=== PATIENT | male | born 1955 | race Caucasian/White ===

== ENCOUNTER 2020-01-24 15:17 | Outpatient (REF) | payer OTHER, SELFPAY ==
[2020-01-24 17:17] LABS: Anion Gap 14 (12-20); Blood Urea Nitrogen 22 mg/dL (9-16); Calcium 9.7 mg/dL (8.4-10.2); Carbon Dioxide 27 mmol/L (22-29); Chloride 103 mmol/L (96-108); Cholesterol 152 mg/dL; Estimated Glomerular Filt Rate > 60; Glucose Random 126 mg/dL (60-115); HDL Cholesterol 65 mg/dL; LDL Cholesterol Calculated 75 mg/dl; Lipase 25 U/L (8-78); Potassium 4.9 mmol/l (3.3-5.1); Sodium 139 mmol/L (135-145); Triglycerides 64 mg/dL
[2020-01-24 17:36] LABS: Prostate Specific Antigen Scr 2.89 ng/mL (<0.05-4.0)
[2020-01-24 17:51] LABS: Creatinine Urine 200.05 mg/dL; Microalbum/Creatinine Ratio Ur 121.4 ug/mg cr
== END 2020-01-24 15:18 | disposition home or self-care (01) ==
LOC: HO.HMGCLDS 15:17
PROVIDERS: PCP Nurse Practitioner Family; Visit Provider Nurse Practitioner Family
DX: E11.9 Type 2 diabetes mellitus without complications (principal); E78.5 Hyperlipidemia, unspecified; Z12.5 Encounter for screening for malignant neoplasm of prostate
CPT/HCPCS: 80048; 80061; 82043; 83690; 84153

== ENCOUNTER → 2020-11-02 09:05 | Outpatient (BNVA) | payer OTHER, SELFPAY | PROVIDERS: PCP Nurse Practitioner Family; Referring Provider Nurse Practitioner Family; Visit Provider Internal Medicine Cardiovascular Disease | DX: I48.20 Chronic atrial fibrillation, unspecified (principal) | CPT/HCPCS: 93005 ==

== ENCOUNTER → 2021-12-06 14:28 | Outpatient (BNVA) | payer OTHER, SELFPAY | PROVIDERS: PCP Nurse Practitioner Family; Referring Provider Nurse Practitioner Family; Visit Provider Nurse Practitioner Family | DX: I48.20 Chronic atrial fibrillation, unspecified (principal); E78.5 Hyperlipidemia, unspecified | CPT/HCPCS: 93005 ==

== ENCOUNTER → 2022-01-01 11:17 | Outpatient (REF) | payer OTHER, SELFPAY ==
--- NOTE | 2022-01-08 14:19 | HM_ITS ---
* Total monitoring time 2 days and 16 hours. * Underlying rhythm is atrial fibrillation. * Average rate 88/Min. Range 58 to 195/Min. * About 7.7% of the time, rate greater than 100/Min. No significant bradycardia or pauses. * No patient diary. * Overall, less than optimal rate control with tendency for very rapid rates. MTDD
== END ==
LOC: HO.CARD 11:17
PROVIDERS: PCP Nurse Practitioner Family; Visit Provider Nurse Practitioner Family
DX: I48.20 Chronic atrial fibrillation, unspecified (principal)
CPT/HCPCS: 93242

== ENCOUNTER → 2022-01-22 14:52 | Outpatient (REF) | payer OTHER, SELFPAY ==
--- NOTE | 2022-01-22 14:57 | CA_ITS ---
Transthoracic Echocardiogram Patient (Last, First, Middle): Kevin Fleming, Gender: Male Date of : 1955 Age: 66 Procedure Date: 01/22/2022 Procedure Type: Transthoracic Echocardiogram Location: OP Height: 172.72 cm Weight: 77.57 kg BSA: 1.91 m2 Heart Rate: bpm BP: 114 / 70 mmHg Grass Farmer: LISY Referring MD: Abiola Spence [facility] Symptoms: I48.20 - Chronic atrial fibrillation, unspecified Study Quality: Adequate w contrast ECG Rhythm: Atrial Fibrillation Conclusions: - The left ventricular systolic function is normal. The visually estimated ejection fraction is between 60-65%. - No obvious valvular pathology seen on this study. Findings Procedure Information Contrast agent, definity, is being given per protocol without apparent complications. Left Ventricle Normal left ventricular cavity size. The left ventricular systolic function is normal. The visually estimated ejection fraction is between 60-65%. There is no evidence of regional wall motion abnormalities. Diastolic function is indeterminate on the basis of available data. There is mild septal asymmetric hypertrophy. Right Ventricle Mildly increased right ventricular cavity size. There is normal right ventricular systolic function. Atria Both atria are normal in size. Aortic Valve There is a normal trileaflet aortic valve. There is no aortic valve stenosis. There is no aortic valve regurgitation. Mitral Valve The mitral valve appears normal. There is trace mitral valve regurgitation. There is no mitral valve stenosis. Pulmonic Valve The pulmonic valve is likely normal. Tricuspid Valve Normal tricuspid valve structure. There is trace tricuspid valve regurgitation. There is no evidence of pulmonary hypertension. Great Vessels The asc aorta is normal in size. Venous The inferior vena cava is normal in size and collapses greater than 50% with inspiration. Pericardium/Pleural There is no evidence of pericardial effusion. Prior Study Comparison No prior study available for comparison. Recommendations, Care & Conclusions No obvious valvular pathology seen on this study. Measurements 2D Linear Measurements IVSd: 1.13 0.6-0.9/0.6-1.0 cm LVIDd: 3.74 3.9-5.3/4.2-5.9 cm LVIDd Index: 1.96 2.4-3.2/2.2-3.1 cm/m2 LVIDs: 2.42 2.0-3.6 cm LVPWd: 0.94 0.7-1.1 cm LA Diam: 3.70 2.7-3.8/3.0-4.0 cm LAIDs Index: 1.94 1.5-2.3 cm/m2 LV Mass: 149.04 67-162/88-224 g LV Mass Index: 78.03 43-95/49-115 g/m2 LVOT Diam: 2.40 3.0+(-)1.3 cm 2D Systolic Function EF 4C: 70.40 >55% EF 2C: 64.30 >55% EF BiP: 68.30 >55% Mitral Valve MV Pk E: 0.87 Aortic Valve AoV Pk Jeyson: 0.95 AoV Pk Grad: 4.00 PILAR: 4.69 LVOT LVOT Pk Jeyson: 0.93 LVOT Mn Jeyson: 0.63 LVOT VTI: 0.15 LVOT Pk Grad: 3.00 LVOT Mn Grad: 2.00 LVOT Diam: 2.40 LVOT Area: 4.52 Diastolic Function MV Pk E: 0.87 Right Ventricle TAPSE (mm): 18.30 TVS' Jeyson: 9.30 Tricuspid Valve TR Pk Jeyson: 2.16 TR Pk Grad: 19.00 RA Press: 3.00 RVSP: 22.00 Great Vessels Aorta Sinus of Valsalva: 3.40 2.0-3.5 cm Ao Asc: 3.60 2.1-3.4 cm Pulmonary Valve PV Pk Jeyson: 0.94 Peak PV Grad: 4.00 Updated in Other Vendor System with Status of Final Osorio Kaminski MD electronically signed on 01/22/2022 4:15:21 PM with status of Final
== END ==
LOC: HO.CARD 14:52
PROVIDERS: Visit Provider Nurse Practitioner Family
DX: I48.20 Chronic atrial fibrillation, unspecified (principal)
CPT/HCPCS: 93306; Q9957

== ENCOUNTER 2022-01-24 07:01 | Outpatient (REF) | payer OTHER, SELFPAY ==
[2022-01-24 11:29] LABS: MANUAL DIFF FLAG NO
[2022-01-24 11:47] LABS: Basophils Percent Auto 0.5 % (0-2); Eosinophils Absolute Auto 0.1 X10*3/uL (0.0-0.4); Eosinophils Percent Auto 1.2 % (0-4); Hematocrit 52.4 % (42.0-52.0); Hemoglobin 17.2 g/dl (14.0-18.0); Imm Gran Abs Auto 0.01 X10*3/uL (0.00-0.03); Imm Gran Pct Auto 0.2 % (0.0-0.4); Lymphocytes Percent Auto 30.3 % (20-40); Mean Corpuscular HGB Conc 32.8 g/dl (31.0-36.0); Mean Corpuscular Hemoglobin 29.6 pg (27.0-33.0); Mean Platelet Volume 10.6 fL (9.4-12.4); Monocytes Absolute Auto 0.7 X10*3/uL (0.1-1.2); Monocytes Percent Auto 10.3 % (2-11); Neutrophils Absolute Auto 3.7 x10*3/uL (2.0-8.3); Neutrophils Percent Auto 57.5 % (45-73); Platelet Count 226 X10*3/uL (160-400); Red Blood Count 5.82 X10*6/uL (4.60-5.80); Red Cell Distribution Width 12.6 % (11.0-16.0); White Blood Count 6.5 X10*3/uL (4.8-10.8)
[2022-01-24 11:55] LABS: Estimated Average Glucose 177 mg/dL; Hemoglobin A1c % 7.8 %
[2022-01-24 12:18] LABS: Alanine Aminotransferase 26 U/L (0-40); Albumin Level 4.5 g/dL (3.5-5.0); Alkaline Phosphatase 72 U/L (39-117); Anion Gap 19 (12-20); Aspartate Amino Transferase 22 U/L (5-37); Bilirubin Total 2.3 mg/dL (0.0-1.0); Blood Urea Nitrogen 16 mg/dL (9-16); Calcium 10.2 mg/dL (8.4-10.2); Carbon Dioxide 25 mmol/L (22-29); Chloride 101 mmol/L (96-108); Cholesterol 118 mg/dL; Estimated Glomerular Filt Rate > 60; Glucose Fasting 107 mg/dL (60-99); HDL Cholesterol 58 mg/dL; LDL Cholesterol Calculated 46 mg/dl; Potassium 4.5 mmol/L (3.3-5.1); Sodium 140 mmol/L (135-145); Total Protein 7.2 g/dL (6.5-8.0); Triglycerides 73 mg/dL
[2022-01-24 12:21] LABS: Creatinine Urine 242.85 mg/dL; Microalbum/Creatinine Ratio Ur 30.4 ug/mg cr
[2022-01-24 12:41] LABS: Prostate Specific Antigen Scr 2.75 ng/mL (<0.05-4.0); TSH reflex Free T4 1.63 uIU/mL (0.32-4.0)
[2022-01-24 13:12] LABS: Appearance Urine Turbid; Color Urine Yellow; Glucose Urine UA Negative (Negative); Leukocyte Esterase Urine Negative (Negative); Nitrite Urine Negative (Negative); Specific Gravity - Urine 1.025 (1.005-1.025); Urine Blood Negative (Negative); Urine Ketones Negative (Negative); Urine Protein Trace mg/dL (Neg-Trace)
== END 2022-01-24 07:02 | disposition home or self-care (01) ==
LOC: HO.HMGCLDS 07:01
PROVIDERS: PCP Nurse Practitioner Family; Visit Provider Nurse Practitioner Family
DX: E11.9 Type 2 diabetes mellitus without complications (principal); Z12.5 Encounter for screening for malignant neoplasm of prostate
CPT/HCPCS: 36415; 80053; 80061; 81003; 82043; 83036; 84153; 84443; 85025

== ENCOUNTER 2022-12-12 15:17 | Outpatient (AMB) | payer OTHER, SELFPAY ==
--- NOTE | 2022-12-12 15:42 | A.OFFVIS_ITS ---
Intake Vital Signs 12/12/22 15:43 Height 5 ft 8 in Weight 171 lb 1.259 oz BMI 26.0 BP 120/82 Blood Pressure Location Lt brachial Position Sitting Pulse 103 H Intake Visit Reasons: 1 year follow up Intake Note: 1 year f/u Photo Equipment Technician Required: No Allergies No Known Allergies Allergy (Verified 12/12/22 15:51) HPI 1 year follow up HPI Details Kevin is a 67-year-old male with past medical history of hyperlipidemia, diabetes, CVA, atrial fibrillation who presents for follow-up. Today he reports he has been feeling well with no concerning symptoms. He denies any heart palpitations and cannot feel the fact that he is in atrial fi brillation. No chest discomfort at rest or with activity. No shortness of breath, dizziness, presyncope, syncope, PND, orthopnea or edema. He reports very good activity tolerance and continues to golf 18 holes without a cart, caring his golf bag. Takes all meds as directed. No bleeding issues reported. [facility] Medical History Chronic a-fib Dyslipidemia Diabetes History of CVA (cerebrovascular accident) Pilonidal cyst Family History Father HTN (hypertension) Mother No problems noted. Social History Housing: House Alcohol intake: current Alcohol intake frequency: holidays/special occasions only Patient Tobacco Use Status: Never used Tobacco e-Cigarette/Vaping Use: Never Used Current occupational status: employed Cognitive needs: No Hearing needs: No Vision needs: No Review of Systems Const All systems reviewed & are unremarkable except as noted in HPI and below ENT Denies dizziness Card Denies chest pain, Denies chest pain at rest, Denies chest pain with activity, Denies rapid heart rate, Denies pedal edema, Denies edema, Denies leg edema, Denies lightheadedness, Denies palpitations, Denies dyspnea, Denies dyspnea on exertion and Denies orthopnea Resp Denies cough, Denies dyspnea and Denies dyspnea on exertion GI Denies hematochezia and Denies change in stool character Musc Denies abnormal gait, Denies limited range of motion, Denies muscle cramps, Denies muscle weakness, Denies numbness, Denies radiating pain into limb, Denies stiffness and Denies tingling Neuro Denies abnormal gait, Denies dizziness, Denies numbness and Denies tingling Endo Denies palpitations Physical Exam Vital Signs: Last Vital Signs Pulse 103 H 12/12/22 15:43 BP 120/82 12/12/22 15:43 BMI result Body Mass Index 26.0 Const General: cooperative, healthy appearing, comfortable and no acute distress Orientation/consciousness: patient oriented x3 Neck Neck: Yes normal visual inspection Resp Effort & Inspection: normal respiratory effort Auscultation: clear to auscultation bilaterally, no crackles, no rales, no rhonchi and no wheezes Cardio Jugular venous distension: no JVD Rate: tachycardic Rhythm: abnormal rhythm Heart sounds: S1 normal heart sound present, S2 normal heart sound present, no murmurs and no rubs Neuro General: patient oriented x3 Extrem General: Yes normal to inspection Psych Appearance: grossly normal Mental Status: mental status grossly normal Speech and movement: Normal speech and movement present Office Procedures EKG Details: Today, read by me, atrial fibrillation with rapid ventricular response, rate 103, QTC 434 milliseconds [id number], Complete Assessment & Plan Assessment & Plan (1) Chronic a-fib: Code(s): I48.20 - Chronic atrial fibrillation, unspecified Plan: History of chronic atrial fibrillation with prior failed cardioversion in the past. He he has not been on rate slowing agents due to controlled heart rates in the past. He denies any heart palpitations. Holter monitor done on 01/08/2022 showed atrial fibrillation with average heart rate 88 with elevated heart rates at times up to peak of 195. An echocardiogram was done 01/22/2022 showing EF 60-65%. Today he reports he continues to feel very well with no concerning symptoms. EKG shows atrial fibrillation, rate 103. Discussed need for rate slowing agent at this time. Will start on metoprolol XL 25 mg daily. He declines repeat Holter monitor as his last 1 cost him 600 dollars. Will arrange for an office EKG in a few weeks to reassess rate. He is on Eliquis for anticoagulation. No bleeding issues reported. Labs done 01/24/2022 showed creatinine 0.87, hematocrit 52.4. Recommend bi annual kidney function. Cardiology follow-up in 1 year, sooner if needed. (2) Dyslipidemia: Code(s): E78.5 - Hyperlipidemia, unspecified Plan: [place] LDL goal less than 70 and patient with diabetes. Last LDL 46 on 01/24/22. Continue atorvastatin Medications: New metoprolol succinate ER 25 mg PO DAILY 30 tabs 5RF Coding Level of Care Code Est Pt Level 3 (19399) Diagnoses Chronic a-fib I48.20 Dyslipidemia E78.5 CPT Codes EKG - CPT: 24452-[id number], Complete ([id number]) Time Spent (min) 24 Comment Chart review, documentation, interview, assessment
[2022-12-12 15:43] VITALS: BP 120/82; PULSE 103; BMI 26.0
== END 2022-12-12 16:23 | disposition home or self-care (01) ==
PROVIDERS: PCP Nurse Practitioner Family; Referring Provider Nurse Practitioner Family; Visit Provider Nurse Practitioner Family
DX: I48.20 Chronic atrial fibrillation, unspecified (principal); E78.5 Hyperlipidemia, unspecified
CPT/HCPCS: 93010; 99213

== ENCOUNTER → 2022-12-12 15:17 | Outpatient (BNVA) | payer OTHER, SELFPAY | PROVIDERS: PCP Nurse Practitioner Family; Referring Provider Nurse Practitioner Family; Visit Provider Nurse Practitioner Family | DX: I48.20 Chronic atrial fibrillation, unspecified (principal); E78.5 Hyperlipidemia, unspecified; Z79.01 Long term (current) use of anticoagulants; Z79.899 Other long term (current) drug therapy | CPT/HCPCS: 93005 ==

== ENCOUNTER → 2023-01-09 15:21 | Outpatient (BNVA) | payer OTHER, SELFPAY | PROVIDERS: PCP Nurse Practitioner Family; Visit Provider Nurse Practitioner Family ==

== ENCOUNTER 2023-02-01 08:24 | Outpatient (REF) | payer OTHER, SELFPAY ==
[2023-02-01 11:12] LABS: MANUAL DIFF FLAG NO
[2023-02-01 11:18] LABS: Basophils Absolute Auto 0.1 X10*3/uL (0.0-0.2); Basophils Percent Auto 0.8 % (0-2); Eosinophils Absolute Auto 0.2 X10*3/uL (0.0-0.4); Eosinophils Percent Auto 3.3 % (0-4); Hematocrit 48.4 % (42.0-52.0); Hemoglobin 16.3 g/dl (14.0-18.0); Imm Gran Abs Auto 0.02 X10*3/uL (0.00-0.03); Imm Gran Pct Auto 0.3 % (0.0-0.4); Lymphocytes Absolute Auto 1.6 X10*3/uL (1.2-4.9); Lymphocytes Percent Auto 25.2 % (20-40); Mean Corpuscular HGB Conc 33.7 g/dl (31.0-36.0); Mean Corpuscular Hemoglobin 30.5 pg (27.0-33.0); Mean Corpuscular Volume 90.5 fL (80.0-98.0); Mean Platelet Volume 10.2 fL (9.4-12.4); Monocytes Absolute Auto 0.7 X10*3/uL (0.1-1.2); Monocytes Percent Auto 10.4 % (2-11); Neutrophils Absolute Auto 3.8 x10*3/uL (2.0-8.3); Platelet Count 223 X10*3/uL (160-400); Red Blood Count 5.35 X10*6/uL (4.60-5.80); Red Cell Distribution Width 12.5 % (11.0-16.0); White Blood Count 6.4 X10*3/uL (4.8-10.8)
[2023-02-01 11:24] LABS: Appearance Urine Clear; Color Urine Yellow; Glucose Urine UA Negative (Negative); Leukocyte Esterase Urine Negative (Negative); Nitrite Urine Negative (Negative); Specific Gravity - Urine 1.025 (1.005-1.025); Urine Blood Negative (Negative); Urine Ketones Trace mg/dL (Negative); Urine Protein Negative (Neg-Trace)
[2023-02-01 11:39] LABS: Alanine Aminotransferase 30 U/L (0-40); Albumin Level 4.2 g/dL (3.5-5.0); Alkaline Phosphatase 59 U/L (39-117); Anion Gap 14 (12-20); Aspartate Amino Transferase 26 U/L (5-37); Bilirubin Total 2.1 mg/dL (0.0-1.0); Blood Urea Nitrogen 17 mg/dL (9-16); Calcium 9.9 mg/dL (8.4-10.2); Carbon Dioxide 26 mmol/L (22-29); Chloride 103 mmol/L (96-108); Cholesterol 94 mg/dL (<200); Estimated Glomerular Filt Rate > 60; Glucose Fasting 105 mg/dL (60-99); HDL Cholesterol 44 mg/dL (>40); LDL Cholesterol Calculated 36 mg/dL (<100); Potassium 4.4 mmol/L (3.3-5.1); Sodium 139 mmol/L (135-145); Total Protein 6.8 g/dL (6.5-8.0); Triglycerides 73 mg/dL (<150)
[2023-02-01 11:42] LABS: Estimated Average Glucose 174 mg/dL; Hemoglobin A1c % 7.7 % (<6.0)
[2023-02-01 11:54] LABS: TSH reflex Free T4 0.89 uIU/mL (0.32-4.0)
== END 2023-02-01 08:25 | disposition home or self-care (01) ==
LOC: HO.HMGCLDS 08:24
PROVIDERS: PCP Nurse Practitioner Family; Visit Provider Nurse Practitioner Family
DX: E11.9 Type 2 diabetes mellitus without complications (principal)
CPT/HCPCS: 36415; 80053; 80061; 81003; 83036; 84443; 85025

== ENCOUNTER 2023-02-12 07:55 | Outpatient (AMB) | payer OTHER, SELFPAY ==
--- NOTE | 2023-02-12 07:56 | A.OFFPC_ITS ---
Vital Signs 02/12/23 07:59 Weight 171 lb BP 118/82 Blood Pressure Location Lt brachial Position Sitting Pulse 66 Pulse Source Pulse Oximeter Pulse Oximetry (%) 96 Oxygen Delivery Method Room Air Intake Visit Reasons: PE Allergies No Known Allergies Allergy (Verified 02/12/23 08:00) Medication List - Last Reconciled 02/12/23 by KAILEE Ortiz apixaban 5 mg PO BID 90 days atorvastatin 80 mg PO DAILY 90 days blood sugar diagnostic ([employer]Touch Verio test strips) 3 times daily empagliflozin (Jardiance) 10 mg PO DAILY metformin ER 1,000 mg (2 x 500 mg) PO BID metoprolol succinate ER 25 mg PO DAILY semaglutide 2 mg (0.75 mL) subcut QWEEK Tobacco use date assessed: 08/14/22 Fall risk assessment: No Falls in past year Last assessed Fall Risk: 02/12/23 Dental Screening Dental Screen Date: 02/12/23 Did you have a dental visit in the last 12 months?: Yes Did you have a dental problem in the last 6 months where you did not have access to dental care?: No Was dental information given to patient?: Patient has dentist HPI PE HPI Details Pt is here for a PE. Labs were already performed. Due for colon screen. Due for PSA, will order. Denies dribbling with urination, weak stream, and frequent nocturia. Pt is a diabetic, on a statin. Last A1C was 7.7. Due for microalbumin, will order. Denies polyuria, polydipsia, and neuropathy. Pt denies any signs and symptoms of hypoglycemia and does know how to correct it. Pt reports that his blood sugar has been ranging from 140-200. Will increase ozempic from 1mg to 2mg. Will also add jardiance 10mg. Eye exam is up to date. instructed on getting psv 23 at his pharmacy [facility] Medical History Chronic a-fib Dyslipidemia Diabetes History of CVA (cerebrovascular accident) Pilonidal cyst Family History Father HTN (hypertension) Mother No problems noted. Social History Housing: House Alcohol intake: current Alcohol intake frequency: holidays/special occasions only Patient Tobacco Use Status: Never used Tobacco e-Cigarette/Vaping Use: Never Used Current occupational status: employed Cognitive needs: No Hearing needs: No Vision needs: No Questionnaire Thrive Questionnaire Date Thrive assessed: 08/14/22 AUDIT C Alcohol Use Questionnaire (AUDIT-C) 1. How often do you have a drink containing alcohol?: 2-4 times a month 2. How many drinks containing alcohol do you have on a typical day when you are drinking?: 1 or 2 3. How often do you have six or more drinks on one occasion?: Never Total Score: 2 Score Reviewed/Action Taken: No SAGRARIO-7 AMB Questionnaire SAGRARIO-7 Date SAGRARIO - 7 assessed: 08/14/22 Source: Developed by Drs. Dennis Ryan, Keri Vasquez, Len Roche and colleagues, with an educational jonnathan from [email or web address]. Review of Systems Const Denies chills and Denies fever(s) Eyes Denies blurry vision ENT Denies vertigo, Denies dizziness and Denies sore throat Card Denies chest pain at rest, Denies chest pain with activity, Denies diaphoresis, Denies dyspnea and Denies dyspnea on exertion Resp Denies cough, Denies dyspnea, Denies dyspnea on exertion and Denies wheezing GI Denies abdominal pain, Denies melena, Denies hematochezia, Denies constipation, Denies diarrhea and Denies loose stools Denies hematuria Musc Denies numbness and Denies tingling Skin/Breast Denies lesions Neuro Denies vertigo, Denies dizziness, Denies numbness and Denies tingling Psych Denies anxiety, Denies depression, Denies homicidal ideation, Denies suicidal ideation and Denies other (substance abuse) Aller/Immun Denies wheezing Physical exam (Primary Care) Vital Signs: Last Vital Signs Pulse 66 02/12/23 07:59 BP 118/82 02/12/23 07:59 Pulse Ox 96 02/12/23 07:59 Oxygen Delivery Method Room Air 02/12/23 07:59 Tobacco/Smoking Status: Tobacco use Status Tobacco use date assessed 08/14/22 02/12/23 07:59 Patient Tobacco Use Status Never used Tobacco 02/12/23 07:59 e-Cigarette/Vaping Use Never Used 02/12/23 07:59 Thrive Assessment: Date of Thrive Assessment Date Thrive assessed 08/14/22 02/12/23 07:59 Const General: cooperative Nutritional Appearance: well nourished Orientation/consciousness: patient oriented x3 HENMT Head: Yes normal to inspection, Yes normocephalic and Yes atraumatic Ears: TM's normal bilaterally Eyes General: appearance normal, both eyes and all related structures Alignment and Position: alignment normal and position normal Neck Neck: Yes normal visual inspection and Yes no lymphadenopathy Thyroid: Thyroid normal Resp Effort & Inspection: normal respiratory effort Auscultation: clear to auscultation bilaterally Cardio Rate: regular rate Rhythm: regular rhythm Heart sounds: S1 normal heart sound present, S2 normal heart sound present and no murmurs GI Palpation (GI): Soft to palpation and nontender Auscultation: normal bowel sounds Male General Exam: Yes normal external exam Penis: normal penis Scrotum: scrotum normal, testes descended bilaterally and no inguinal hernias Testes: no testicular mass Skin Rashes: no rashes Neuro General: patient oriented x3, moves all extremities, no focal motor deficits and deep tendon reflexes 2+ bilaterally Romberg Test: Negative Extrem Other: bilat feet: + sensation with use of monofilament, feet intact without lesions Psych Appearance: grossly normal Mental Status: mental status grossly normal Speech and movement: Normal speech and movement present Affect: normal affect Attitude: cooperative Thought process: Normal thought process present Thought content: Normal thought content present Insight: Good insight present (Psych) Judgement: Good judgement present (Psych) Assessment and Plan Assessment & Plan (1) Screening PSA (prostate specific antigen): Code(s): Z12.5 - Encounter for screening for malignant neoplasm of prostate Plan: PSA ordered (2) Diabetes: Code(s): E11.9 - Type 2 diabetes mellitus without complications (3) Screening for colon cancer: Code(s): Z12.11 - Encounter for screening for malignant neoplasm of colon Plan The patient agreed to the use of a medical transcriptionist for this encounter. Scribed for KAILEE Polo by Jayde Perea medical transcriptionist, on 02/12/2023 at 08:05 EST. Orders: Orders Microalbumin, Random (w Creat) Today E11.9 - Type 2 diabetes mellitus without complications Prostate Specific Antigen Scr Today Z12.5 - Encounter for screening for malignant neoplasm of prostate Referrals Gastroenterology Referral Z12.11 - Encounter for screening for malignant neoplasm of colon Medications: New empagliflozin (Jardiance) 10 mg PO DAILY 90 tabs 0RF Changed From semaglutide (Ozempic) 1 mg (0.75 mL) subcut QWEEK 9 mL 1RF To semaglutide 2 mg (0.75 mL) subcut QWEEK 3 mL 1RF Coding Level of Care Code Est Pt Prev Care >65y(95432) Diagnoses Screening PSA (prostate specific antigen) Z12.5 Diabetes E11.9 Screening for colon cancer Z12.11
[2023-02-12 07:59] VITALS: BP 118/82; PULSE 66; O2SAT 96
== END 2023-02-12 08:18 | disposition home or self-care (01) ==
PROVIDERS: Visit Provider Nurse Practitioner Family
DX: Z00.00 Encounter for general adult medical examination without abnormal findings (principal); Z12.5 Encounter for screening for malignant neoplasm of prostate; E11.9 Type 2 diabetes mellitus without complications; Z12.11 Encounter for screening for malignant neoplasm of colon
CPT/HCPCS: 99397

== ENCOUNTER 2023-02-12 08:20 | Outpatient (REF) | payer OTHER, SELFPAY ==
[2023-02-12 11:49] LABS: Bilirubin Direct 0.4 mg/dL (0.0-0.5); Bilirubin Total 1.2 mg/dL (0.0-1.0)
[2023-02-12 12:02] LABS: Prostate Specific Antigen Scr 3.68 ng/mL (<0.05-4.0)
[2023-02-12 12:05] LABS: Creatinine Urine 138.93 mg/dL; Microalbum/Creatinine Ratio Ur 25.1 ug/mg cr (<30)
== END 2023-02-12 08:21 | disposition home or self-care (01) ==
LOC: HO.HMGCLDS 08:20
PROVIDERS: PCP Nurse Practitioner Family; Visit Provider Nurse Practitioner Family
DX: Z12.5 Encounter for screening for malignant neoplasm of prostate (principal); E11.9 Type 2 diabetes mellitus without complications; R17 Unspecified jaundice
CPT/HCPCS: 36415; 82043; 82247; 82248; 82570; 84153

== ENCOUNTER 2023-07-31 06:38 | Outpatient (REF) | payer OTHER, SELFPAY ==
[2023-07-31 10:23] LABS: MANUAL DIFF FLAG NO
[2023-07-31 10:36] LABS: Appearance Urine Clear; Color Urine Yellow; Glucose Urine UA >=1000 mg/dL (Negative); Leukocyte Esterase Urine Negative (Negative); Nitrite Urine Negative (Negative); Specific Gravity - Urine >= 1.030 (1.005-1.025); UMIC TRIGGER UACC YES; Urine Blood Negative (Negative); Urine Ketones Negative (Negative); Urine Protein Negative (Neg-Trace)
[2023-07-31 10:45] LABS: Bacteria Urine None Seen (None Seen); Hyaline Casts Urine 0-2 /LPF (0-2); RBC Urine 0-2 /HPF (0-2); Squamous Epithelial Cell Urine 0-2 /HPF (0-2); WBC Urine 0-5 /HPF (0-5)
[2023-07-31 10:50] LABS: Basophils Percent Auto 0.4 % (0-2); Eosinophils Absolute Auto 0.1 X10*3/uL (0.0-0.4); Eosinophils Percent Auto 1.4 % (0-4); Hematocrit 51.1 % (42.0-52.0); Hemoglobin 16.7 g/dl (14.0-18.0); Imm Gran Abs Auto 0.02 X10*3/uL (0.00-0.03); Imm Gran Pct Auto 0.3 % (0.0-0.4); Lymphocytes Absolute Auto 2.2 X10*3/uL (1.2-4.9); Lymphocytes Percent Auto 28.3 % (20-40); Mean Corpuscular HGB Conc 32.7 g/dl (31.0-36.0); Mean Corpuscular Hemoglobin 29.8 pg (27.0-33.0); Mean Corpuscular Volume 91.3 fL (80.0-98.0); Mean Platelet Volume 10.9 fL (9.4-12.4); Monocytes Absolute Auto 0.9 X10*3/uL (0.1-1.2); Monocytes Percent Auto 11.1 % (2-11); Neutrophils Absolute Auto 4.5 x10*3/uL (2.0-8.3); Neutrophils Percent Auto 58.5 % (45-73); Platelet Count 218 X10*3/uL (160-400); Red Cell Distribution Width 13.4 % (11.0-16.0); White Blood Count 7.7 X10*3/uL (4.8-10.8)
[2023-07-31 10:57] LABS: Alanine Aminotransferase 27 U/L (0-40); Albumin Level 4.3 g/dL (3.5-5.0); Alkaline Phosphatase 74 U/L (39-117); Anion Gap 12 (12-20); Aspartate Amino Transferase 22 U/L (5-37); Blood Urea Nitrogen 16 mg/dL (9-16); Calcium 9.7 mg/dL (8.4-10.2); Carbon Dioxide 28 mmol/L (22-29); Chloride 104 mmol/L (96-108); Cholesterol 116 mg/dL (<200); Estimated Glomerular Filt Rate > 60; Glucose Fasting 102 mg/dL (60-99); HDL Cholesterol 52 mg/dL (>40); LDL Cholesterol Calculated 49 mg/dL (<100); Potassium 3.8 mmol/L (3.3-5.1); Sodium 140 mmol/L (135-145); Triglycerides 79 mg/dL (<150)
[2023-07-31 11:03] LABS: Prostate Specific Antigen Scr 3.05 ng/mL (<0.05-4.0)
[2023-07-31 11:05] LABS: TSH reflex Free T4 1.62 uIU/mL (0.32-4.0)
[2023-07-31 11:23] LABS: Creatinine Urine 94.87 mg/dL
[2023-08-01 14:08] LABS: Immature Retic Fraction 11.6 % (2.3-13.4); Retic HGB Equivalent 35.1 pg (30.0-35.0); Reticulocyte Percent 1.8 % (0.5-1.8); Reticulocytes Absolute 0.101 X10*6/uL (0.026-0.095)
[2023-08-01 14:53] LABS: Bilirubin Direct 0.7 mg/dL (0.0-0.5); Lactate Dehydrogenase 210 U/L (118-273)
[2023-08-04 13:38] LABS: Haptoglobin 145 mg/dL (43-212)
== END 2023-07-31 06:39 | disposition home or self-care (01) ==
LOC: HO.HMGCLDS 06:38
PROVIDERS: PCP Nurse Practitioner Family; Visit Provider Nurse Practitioner Family
DX: R80.9 Proteinuria, unspecified (principal); E78.5 Hyperlipidemia, unspecified; E11.9 Type 2 diabetes mellitus without complications; R17 Unspecified jaundice; Z12.5 Encounter for screening for malignant neoplasm of prostate
CPT/HCPCS: 36415; 80053; 80061; 81001; 82043; 82248; 82570; 83010; 83615; 84153; 84443; 85025; 85045

== ENCOUNTER 2023-08-07 07:59 | Outpatient (REF) | payer OTHER, SELFPAY ==
--- NOTE | ~2023-08-07 | US_ITS ---
EXAMINATION: US ABDOMEN COMPLETE CLINICAL INFORMATION: Unspecified jaundice. COMPARISON: None available. TECHNIQUE: Real-time imaging of the abdominal viscera. Limited visualization due to bowel gas. FINDINGS: PANCREAS: Poorly visualized ABDOMINAL AORTA: Imaged portion unremarkable. INFERIOR VENA CAVA: Visualized portions are normal. LIVER: Increased hepatic parenchymal heterogeneity and echogenicity could be associated with hepatocellular disease/hepatic steatosis and substantially limits visualization. Hypoechoic area within the hepatic lobe adjacent to the gallbladder may represent focal sparing within a fatty liver. Correlation with liver function tests and clinical exam recommended to determine further management. GALLBLADDER: No gallstones. No gallbladder wall thickening. COMMON BILE DUCT: Normal in caliber measuring 0.3 cm in diameter. RIGHT KIDNEY: 1.3 cm right renal midpole exophytic cyst with thin septation is difficult to characterize with limited visualization due to bowel gas. No hydronephrosis or renal calculi. The kidney measures 10.7 cm in maximum dimension. LEFT KIDNEY: Left renal midpole 0.5 cm cyst. There is no indication for additional imaging at this time. No hydronephrosis or renal calculi. The kidney measures 11.9 cm in maximum dimension. SPLEEN: Normal. The spleen measures 8.7 cm in maximum dimension. FREE FLUID: None. US/US abdomen complete IMPRESSION: 1. Increased hepatic parenchymal heterogeneity and echogenicity could be associated with hepatocellular disease/hepatic steatosis and substantially limits visualization. Hypoechoic area within the hepatic lobe adjacent to the gallbladder may represent focal sparing within a fatty liver. Correlation with liver function tests and clinical exam recommended to determine further management. 2. A 1.3 cm right renal midpole exophytic cyst with thin septation is difficult to characterize due to limited visualization. CT scan recommended for further characterization.
== END 2023-08-07 08:00 | disposition home or self-care (01) ==
LOC: HO.US 07:59
PROVIDERS: PCP Nurse Practitioner Family; Visit Provider Nurse Practitioner Family
DX: R17 Unspecified jaundice (principal)
CPT/HCPCS: 76700

== ENCOUNTER 2023-08-11 11:02 | Outpatient (AMB) | payer OTHER, SELFPAY ==
--- NOTE | 2023-08-11 11:07 | A.OFFPC_ITS ---
Vital Signs 08/11/23 11:10 Height 5 ft 8 in Weight 174 lb BMI 26.5 BP 120/78 Blood Pressure Location Lt brachial Position Sitting Pulse 99 Pulse Source Pulse Oximeter Pulse Oximetry (%) 97 Oxygen Delivery Method Room Air Intake Visit Reasons: 6 month fu Intake Note: Patient here for diabetes f/u. pt states sugars at home have been up and down. Allergies No Known Allergies Allergy (Verified 08/11/23 11:11) Medication List - Last Reconciled 08/11/23 by KAILEE Ortiz apixaban 5 mg PO BID 90 days atorvastatin 80 mg PO DAILY 90 days blood sugar diagnostic ([employer] Verio test strips) 3 times daily empagliflozin (Jardiance) 10 mg PO DAILY metformin ER 1,000 mg (2 x 500 mg) PO BID metoprolol succinate ER 25 mg PO DAILY semaglutide (Ozempic) 2 mg (1.5 mL) subcut QWEEK Tobacco use date assessed: 08/11/23 Fall risk assessment: No Falls in past year Last assessed Fall Risk: 08/11/23 Dental Screening Dental Screen Date: 08/11/23 Did you have a dental visit in the last 12 months?: Yes Did you have a dental problem in the last 6 months where you did not have access to dental care?: No Was dental information given to patient?: Patient has dentist HPI 6 month fu HPI Details Pt is a diabetic, on a statin. A1C in office today is 9.2. Microalbumin is up to date. Denies polyuria, polydipsia, and neuropathy. Pt denies any signs and symptoms of hypoglycemia and does know how to correct it. Pt reports recently being off his ozempic and jardiance for over 3 months, but he is back on these now. Will increase ozempic from 1mg to 2mg. Eye exam is up to date. Pt is following up with cardiology. [facility] Medical History Chronic a-fib Dyslipidemia Diabetes History of CVA (cerebrovascular accident) Pilonidal cyst Family History Father HTN (hypertension) Mother No problems noted. Social History (Reviewed 05/06/24 @ 11:36 by Delagdo Alexander [facility] House Alcohol intake: current Alcohol intake frequency: holidays/special occasions only Patient Tobacco Use Status: Never used Tobacco e-Cigarette/Vaping Use: Never Used Current occupational status: employed Cognitive needs: No Hearing needs: No Vision needs: No Questionnaire Thrive Questionnaire Date Thrive assessed: 08/14/22 AUDIT C Alcohol Use Questionnaire (AUDIT-C) 1. How often do you have a drink containing alcohol?: 2-3 times a week 2. How many drinks containing alcohol do you have on a typical day when you are drinking?: 1 or 2 3. How often do you have six or more drinks on one occasion?: Never Total Score: 3 Score Reviewed/Action Taken: No SAGRARIO-7 AMB Questionnaire SAGRARIO-7 Date SAGRARIO - 7 assessed: 08/14/22 Source: Developed by Drs. Dennis Ryan, Keri Vasquez, Len Roche and colleagues, with an educational jonnathan from [employer]. Review of Systems Const Reports as per HPI Physical exam (Primary Care) Vital Signs: Last Vital Signs Pulse 99 08/11/23 11:10 BP 120/78 08/11/23 11:10 Pulse Ox 97 08/11/23 11:10 Oxygen Delivery Method Room Air 08/11/23 11:10 BMI result Body Mass Index 26.5 Tobacco/Smoking Status: Tobacco use Status Tobacco use date assessed 08/11/23 08/11/23 11:13 Patient Tobacco Use Status Never used Tobacco 08/11/23 11:07 e-Cigarette/Vaping Use Never Used 08/11/23 11:07 Thrive Assessment: Date of Thrive Assessment Date Thrive assessed 08/14/22 08/11/23 11:07 Const General: cooperative Orientation/consciousness: patient oriented x3 Resp Effort & Inspection: normal respiratory effort Auscultation: clear to auscultation bilaterally Cardio Rate: regular rate Rhythm: regular rhythm Heart sounds: S1 normal heart sound present and S2 normal heart sound present Neuro General: patient oriented x3 Extrem Other: bilat feet: + sensation with use of monofilament, feet intact Psych Appearance: grossly normal Mental Status: mental status grossly normal Speech and movement: Normal speech and movement present Affect: normal affect Attitude: cooperative Thought process: Normal thought process present Thought content: Normal thought content present Insight: Good insight present (Psych) Judgement: Good judgement present (Psych) Results AMB Hemoglobin A1c AMB Hemoglobin A1c 9.2 % Last Edit by CARIE Zimmerman on 08/11/23 11 :29 Results Reviewed Results Reviewed: Laboratory Last Values Hgb A1c (Clinic) 9.2 % (4.0-6.0) H 08/11/23 11:28 Assessment and Plan Assessment & Plan (1) Diabetes: Code(s): E11.9 - Type 2 diabetes mellitus without complications Plan: Increasing ozempic from 1mg to 2mg (2) Elevated bilirubin: Code(s): R17 - Unspecified jaundice (3) Screening for colon cancer: Code(s): Z12.11 - Encounter for screening for malignant neoplasm of colon Plan The patient agreed to the use of a medical underwriter for this encounter. Scribed for MARQUEZ Polo-JUAN DANIEL by Jayde Perea medical underwriter, on 08/11/2023 at 11:25 EST. Orders: Orders AMB Hemoglobin A1c Today E11.9 - Type 2 diabetes mellitus without complications Lipid Panel Today E11.9 - Type 2 diabetes mellitus without complications TSH reflex Free T4 Today E11.9 - Type 2 diabetes mellitus without complications Complete Blood Count Auto Diff Today E11.9 - Type 2 diabetes mellitus without complications UA CC w/rflx Micro + Cult Today E11.9 - Type 2 diabetes mellitus without comp lications Comprehensive [place]wing. Panel Fast Today E11.9 - Type 2 diabetes mellitus without complications Referrals Gastroenterology Referral R17 - Unspecified jaundice, Z12.11 - Encounter for screening for malignant neoplasm of colon Medications: Changed From semaglutide (Ozempic) 1 mg (0.75 mL) subcut QWEEK 9 mL 3RF To semaglutide (Ozempic) 2 mg (1.5 mL) subcut QWEEK 9 mL 3RF Coding Level of Care Code Est Pt Level 3 (09398) Diagnoses Diabetes E11.9 Elevated bilirubin R17 Screening for colon cancer Z12.11
[2023-08-11 11:10] VITALS: BP 120/78; PULSE 99; O2SAT 97; BMI 26.5
== END 2023-08-11 11:52 | disposition home or self-care (01) ==
PROVIDERS: PCP Nurse Practitioner Family; Visit Provider Nurse Practitioner Family
DX: E11.9 Type 2 diabetes mellitus without complications (principal); R17 Unspecified jaundice; Z12.11 Encounter for screening for malignant neoplasm of colon
CPT/HCPCS: 83036; 99213

== ENCOUNTER 2023-11-03 14:12 | Outpatient (REF) | payer OTHER, SELFPAY ==
--- NOTE | ~2023-11-03 | CT_ITS ---
EXAMINATION: CT ABDOMEN AND PELVIS WITHOUT CONTRAST CLINICAL INFORMATION: Cyst left kidney COMPARISON: Ultrasound from August 07, 2023 TECHNIQUE: Multidetector volumetric imaging was performed from the superior aspect of the liver through the pubic symphysis. Sagittal and coronal reformatted images were obtained on the technologist's workstation. This CT examination was performed using dose optimization techniques as appropriate, variously including the following: *Automated exposure control *Adjustment of mA and/or kV according to patient size (this includes techniques or standardized protocols for targeted exams where dose is matched to indication/reason for exam; i.e. extremities or head) *Use of iterative reconstruction technique DLP: 419 mGy-cm FINDINGS: LUNG BASES: The visualized lung bases are unremarkable. LIVER, GALLBLADDER, AND BILIARY TREE: The liver is normal in size, shape, and attenuation. No focal hepatic lesion or biliary ductal dilatation is present. The gallbladder is unremarkable with no evidence of radiopaque gallstones, gallbladder wall thickening, or obvious pericholecystic inflammatory changes. PANCREAS: Unremarkable. SPLEEN: Unremarkable. ADRENAL GLANDS: Unremarkable. KIDNEYS AND URETERS: There is a septated simple cyst in the interpolar cortex of right kidney, measured 1.7 cm. No evidence of nephrolithiasis or hydroureteronephrosis. No solid masses seen. BLADDER: Unremarkable. GASTROINTESTINAL TRACT: A small hiatal hernia. Loops of bowel are not dilated and reveals no evidence of colitis, diverticulitis, bowel obstruction. Appendix is unremarkable. ABDOMINAL WALL: A small fat-containing umbilical hernia and left inguinal hernia LYMPH NODES: Normal. VASCULAR: Unremarkable. PELVIC VISCERA: There is prostate hypertrophy OSSEOUS STRUCTURES: There are mild degenerative changes with narrowing of L4-5 and L5-S1 intervertebral disc spaces and mild facet arthropathy. Mild changes of degenerative spondylosis seen in the lower thoracic spine. CT/CT abdomen pelvis wo IV con IMPRESSION: 1. Small hiatal hernia. 2. Small fat-containing umbilical and left inguinal hernia. 3. Prostate hypertrophy. 4. Small simple cyst in right kidney Fleischner guidelines were followed. Electronically signed by: Sarahy Wilde MD 12/01/2023 09:30 AM EDT
== END 2023-11-03 14:13 | disposition home or self-care (01) ==
LOC: HO.CT 14:12
PROVIDERS: PCP Nurse Practitioner Family; Visit Provider Nurse Practitioner Family
DX: N28.1 Cyst of kidney, acquired (principal)
CPT/HCPCS: 74176

== ENCOUNTER 2023-12-16 14:34 | Outpatient (AMB) | payer OTHER, SELFPAY ==
[2023-12-16 14:48] VITALS: BP 118/70; PULSE 89; BMI 25.7
--- NOTE | 2023-12-16 14:48 | A.OFFVIS_ITS ---
Vital Signs 12/16/23 14:48 Height 5 ft 8 in Weight 168 lb 13.985 oz BMI 25.7 BP 118/70 Blood Pressure Location Lt brachial Position Sitting Pulse 89 Pulse Source Monitor Intake Visit Reasons: 1Y follow up Occupational Safety And Health Manager Required: No Allergies No Known Allergies Allergy (Verified 12/16/23 14:50) Medication List - Last Reconciled 12/16/23 by Abiola Spence NP-C apixaban 5 mg PO BID 90 days atorvastatin 80 mg PO DAILY 90 days blood sugar diagnostic ([employer] Verio test strips) 3 times daily empagliflozin (Jardiance) 10 mg PO DAILY metformin ER 1,000 mg (2 x 500 mg) PO BID metoprolol succinate ER 25 mg PO DAILY semaglutide (Ozempic) 2 mg (1.5 mL) subcut QWEEK HPI HPI 1Y follow up: Details: Kevin is a 68-year-old male with past medical history of hyperlipidemia, diabetes, CVA, atrial fibrillation who presents for follow-up. Today he reports that he continues to feel very good with no concerning sym ptoms. He denies any heart palpitations and cannot feel the atrial fibrillation. No chest discomfort at rest or with activity. No shortness of breath, dizziness, presyncope, syncope, PND, orthopnea or edema. He reports very good activity tolerance and continues to golf 18 holes without a cart, caring his golf bag. He tells me he just dugout a large tree stump out of his yd and will be loading it onto the back of his truck for disposal. He had no concerning symptoms with this activity. Takes all meds as directed. No bleeding issues reported. [facility] Medical History Chronic a-fib Dyslipidemia Diabetes History of CVA (cerebrovascular accident) Pilonidal cyst Family History Father HTN (hypertension) Mother No problems noted. Social History Housing: House Alcohol intake: current Alcohol intake frequency: holidays/special occasions only Patient Tobacco Use Status: Never used Tobacco e-Cigarette/Vaping Use: Never Used Current occupational status: employed Cognitive needs: No Hearing needs: No Vision needs: No Review of Systems Const All systems reviewed & are unremarkable except as noted in HPI and below ENT Denies dizziness Card Denies chest pain, Denies chest pain at rest, Denies chest pain with activity, Denies rapid heart rate, Denies pedal edema, Denies edema, Denies leg edema, Denies lightheadedness, Denies palpitations, Denies dyspnea, Denies dyspnea on exertion and Denies orthopnea Resp Denies cough, Denies dyspnea and Denies dyspnea on exertion GI Denies hematochezia and Denies change in stool character Musc Denies abnormal gait, Denies limited range of motion, Denies muscle cramps, Denies muscle weakness, Denies numbness, Denies radiating pain into limb, Denies stiffness and Denies tingling Neuro Denies abnormal gait, Denies dizziness, Denies numbness and Denies tingling Endo Denies palpitations Physical Exam Vital Signs: Last Vital Signs Pulse 89 12/16/23 14:48 BP 118/70 12/16/23 14:48 BMI result Body Mass Index 25.7 Const General: cooperative, healthy appearing, comfortable and no acute distress Orientation/consciousness: patient oriented x3 Neck Neck: Yes normal visual inspection and Yes no JVD Resp Effort & Inspection: normal respiratory effort Auscultation: clear to auscultation bilaterally, no crackles, no rales, no rhonchi and no wheezes Cardio Jugular venous distension: no JVD Rate: regular rate Rhythm: abnormal rhythm Heart sounds: S1 normal heart sound present, S2 normal heart sound present, no murmurs and no rubs Neuro General: patient oriented x3 Extrem General: Yes normal to inspection, No no pedal edema and No calf tenderness Psych Appearance: grossly normal Mental Status: mental status grossly normal Speech and movement: Normal speech and movement present Office Procedures EKG Details: Today, read by me, atrial fibrillation, rate 89, QTC 433 milliseconds [id number], Complete Assessment & Plan Assessment & Plan (1) Chronic a-fib: Code(s): I48.20 - Chronic atrial fibrillation, unspecified Category: Medical Plan: History of chronic atrial fibrillation with prior failed cardioversion in the past. He had not been on rate slowing meds due to controlled heart rates. He denies any heart palpitations. Holter monitor done on 01/08/2022 showed atrial fibrillation with average heart rate 88 with elevated heart rates at times up to peak of 195. He declined beta liborio at that time. An echocardiogram was done 01/22/2022 showing EF 60-65%. On last visit his EKG showed atrial fibrillation, rate 103. He was agreeable to start metoprolol XL 25 mg daily. He declines repeat Holter monitor as his last one cost him 600 dollars. EKG done today shows atrial fibrillation, rate 89. Today he reports that he continues to feel very good with no concerning symptoms and good activity tolerance. Continue low-dose metoprolol for heart rate control. Continue Eliquis for anticoagulation. No bleeding issues reported. Labs done 07/31/2023 shows creatinine 0.78, hematocrit 51.1. Recommend bi annual kidney function. Cardiology follow-up in 1 year, sooner if needed. (2) Dyslipidemia: Code(s): E78.5 - Hyperlipidemia, unspecified Category: Medical Plan: [place] LDL goal less than 70 and patient with diabetes. Last LDL 49 on 07/31/2023. Continue atorvastatin Plan Time spent on chart review, documentation, interview and assessment Coding Level of Care Code Est Pt Level 3 (66422) Diagnoses Chronic a-fib I48.20 Dyslipidemia E78.5 CPT Codes EKG - CPT: 63930-[id number], Complete ([id number]) Time Spent (min) 24
== END 2023-12-16 15:12 | disposition home or self-care (01) ==
PROVIDERS: PCP Nurse Practitioner Family; Visit Provider Nurse Practitioner Family
DX: I48.20 Chronic atrial fibrillation, unspecified (principal); E78.5 Hyperlipidemia, unspecified
CPT/HCPCS: 93010; 99213

== ENCOUNTER → 2023-12-16 14:34 | Outpatient (BNVA) | payer OTHER, SELFPAY | PROVIDERS: PCP Nurse Practitioner Family; Visit Provider Nurse Practitioner Family | DX: I48.20 Chronic atrial fibrillation, unspecified (principal); E78.5 Hyperlipidemia, unspecified; Z79.01 Long term (current) use of anticoagulants; Z79.899 Other long term (current) drug therapy | CPT/HCPCS: 93005 ==

== ENCOUNTER 2024-03-03 11:40 | Outpatient (REF) | payer OTHER, SELFPAY ==
[2024-03-03 13:16] LABS: MANUAL DIFF FLAG NO
[2024-03-03 13:32] LABS: Appearance Urine Clear; Color Urine Yellow; Glucose Urine UA >=1000 mg/dL (Negative); Leukocyte Esterase Urine Negative (Negative); Nitrite Urine Negative (Negative); Specific Gravity - Urine >= 1.030 (1.005-1.025); UMIC TRIGGER UACC YES; Urine Blood Negative (Negative); Urine Ketones 40 mg/dL (Negative); Urine Protein Trace mg/dL (Neg-Trace)
[2024-03-03 13:33] LABS: Basophils Percent Auto 0.4 % (0-2); Eosinophils Percent Auto 0.4 % (0-4); Haptoglobin 100 mg/dL (40-268); Hematocrit 51.4 % (42.0-52.0); Hemoglobin 17.5 g/dl (14.0-18.0); Imm Gran Abs Auto 0.02 X10*3/uL (0.00-0.03); Imm Gran Pct Auto 0.2 % (0.0-0.4); Lymphocytes Absolute Auto 1.9 X10*3/uL (1.2-4.9); Lymphocytes Percent Auto 21.3 % (20-40); Mean Corpuscular Hemoglobin 30.7 pg (27.0-33.0); Mean Corpuscular Volume 90.2 fL (80.0-98.0); Mean Platelet Volume 10.6 fL (9.4-12.4); Monocytes Absolute Auto 0.8 X10*3/uL (0.1-1.2); Monocytes Percent Auto 9.3 % (2-11); Neutrophils Absolute Auto 6.2 x10*3/uL (2.0-8.3); Neutrophils Percent Auto 68.4 % (45-73); Platelet Count 231 X10*3/uL (160-400); White Blood Count 9.1 X10*3/uL (4.8-10.8)
[2024-03-03 13:37] LABS: Estimated Average Glucose 183 mg/dL; Hemoglobin A1C 276.6962 umol/L; Total Hemoglobin (HGBA1C) 4347.0364 umol/L
[2024-03-03 13:38] LABS: Bacteria Urine None Seen (None Seen); Hyaline Casts Urine 0-2 /LPF (0-2); RBC Urine 0-2 /HPF (0-2); Squamous Epithelial Cell Urine 0-2 /HPF (0-2); WBC Urine 0-5 /HPF (0-5)
[2024-03-03 14:06] LABS: Alanine Aminotransferase 26 U/L (0-40); Albumin Level 4.4 g/dL (3.5-5.0); Alkaline Phosphatase 68 U/L (39-117); Anion Gap 18 (12-20); Aspartate Amino Transferase 27 U/L (5-37); Bilirubin Total 2.4 mg/dL (0.0-1.0); Blood Urea Nitrogen 22 mg/dL (9-16); Calcium 9.5 mg/dL (8.4-10.2); Carbon Dioxide 25 mmol/L (22-29); Chloride 100 mmol/L (96-108); Cholesterol 88 mg/dL (<200); Estimated Glomerular Filt Rate > 60; Glucose Fasting 98 mg/dL (60-99); HDL Cholesterol 46 mg/dL (>40); LDL Cholesterol Calculated 27 mg/dL (<100); Potassium 4.2 mmol/L (3.3-5.1); Sodium 139 mmol/L (135-145); Total Protein 7.2 g/dL (6.5-8.0); Triglycerides 77 mg/dL (<150)
[2024-03-03 14:16] LABS: TSH reflex Free T4 1.19 uIU/mL (0.32-4.0); Vitamin D 25-OH Total 21.6 ng/mL (>30)
== END 2024-03-03 11:41 | disposition home or self-care (01) ==
LOC: HO.HMGCLDS 11:40
PROVIDERS: PCP Nurse Practitioner Family; Visit Provider Nurse Practitioner Family
DX: E11.9 Type 2 diabetes mellitus without complications (principal); E55.9 Vitamin D deficiency, unspecified; R17 Unspecified jaundice
CPT/HCPCS: 36415; 80053; 80061; 81001; 82306; 83010; 83036; 84443; 85025

== ENCOUNTER 2024-03-09 07:24 | Outpatient (AMB) | payer OTHER, SELFPAY ==
[2024-03-09 07:40] VITALS: BP 100/70; PULSE 98; O2SAT 96; BMI 25.8
--- NOTE | 2024-03-09 07:40 | A.OFFPC_ITS ---
Vital Signs 03/09/24 07:40 Height 5 ft 8 in Weight 170 lb BMI 25.8 BP 100/70 Blood Pressure Location Rt brachial Position Sitting Pulse 98 Pulse Source Pulse Oximeter Pulse Oximetry (%) 96 Oxygen Delivery Method Room Air Intake Visit Reasons: Annual PE Intake Note: Pt is here today for his PE Allergies No Known Allergies Allergy (Verified 03/09/24 08:07) Medication List - Last Reconciled 03/09/24 by Delgado Alexander, [facility]- apixaban 5 mg PO BID 90 days atorvastatin 80 mg PO DAILY 90 days blood sugar diagnostic ([employer] Verio test strips) 3 times daily empagliflozin 25 mg PO DAILY metformin ER 1,000 mg (2 x 500 mg) PO BID metoprolol succinate ER 25 mg PO DAILY semaglutide (Ozempic) 2 mg (1.5 mL) subcut QWEEK Tobacco use date assessed: 03/09/24 Fall risk assessment: No Falls in past year Last assessed Fall Risk: 03/09/24 Dental Screening Dental Screen Date: 03/09/24 Did you have a dental visit in the last 12 months?: No Did you have a dental problem in the last 6 months where you did not have access to dental care?: No Was dental information given to patient?: Patient has dentist HPI Annual PE HPI Details History of Present Illness The patient is a 68-year-old male presenting for a physical examination. He has a history of Diabetes Mellitus Type 2 with the most recent Hemoglobin A1c level measured at 8.0%. The patient is currently prescribed Ozempic, Metformin, and Jardiance as part of his diabetes management. He has atrial fibrillation for which he follows up with cardiology and is on Eliquis for anticoagulation therapy. A recent assessment indicated that his prostatomegaly is stable with up-to-date prostate-specific antigen (PSA) levels and zero symptoms. The patient also reported an elevated bilirubin level with a previous value of 2.4 mg/dL and a concern for possible fatty liver disease identified in a past ultrasound but not confirmed on a subsequent CT scan. He was referred to gastroenterology for follow-up, though reports he was never called for this appt, will resubmit referral. His direct bilirubin is slightly elevated at 0.7 mg/dL. An intervention to increase his Jardiance dose to 25 mg has been proposed, considering that current management should help cardiac and renal protection. The patient is due for a repeat colonoscopy and a possible further evaluation of his elevated bilirubin. He confirmed having recent influenza vaccination. 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 - Marital status: Currently . - Recreational activities: Enjoys [employer]; owns a 28-foot boat. - Past tobacco use: Smoked in high schoo l but quit a couple of years afterward. - Exercise: Engages in physical activiti es such as removing a giant oak stump from his yard without assistance. Review of Systems - Constitutional: Denies any fatigue or weight loss. - Cardio: Denies any chest pain or short ness of breath. - Respiratory: Denies shortness of breat h. - Gastrointestinal: Denies abdominal janes n. - Genitourinary: Denies urinary problems , weak stream, nocturia beyond typical patterns. - Neurological: Denies numbness or tingl ing in extremities. - Ophthalmological: Eye exam pending in three weeks. Physical Exam General: Cooperative, healthy appearing, comfortable, no acute distress and well developed Orientation: Patient oriented x3 Limitations: No limitations Head: Normal to inspection Ears: Hearing grossly normal bilaterally Nose: Normal external nose present Face and sinus: Normal facial exam Eyes: Appearance normal, both eyes and all related structures Neck: Normal visual inspection and Yes full ROM Respiratory: Normal respiratory effort and able to speak in complete sentences. Clear to auscultation bilaterally Cardiovascular: Regular rate and rhythm. Normal S1 and S2 GI: Normal to inspection. Soft to palpation and nontender Skin: No rashes or lesions noted Neuro: Patient oriented x3, feet + sensation with use of monofilament Extremities: Normal to inspection Results - Labs: Hemoglobin A1c 8.0%, Direct Bili awan 0.7 mg/dL, Total Bilirubin 2.4 mg/dL, Haptoglobin and LDH within normal limits. - Imaging/Test: Previous ultrasound sugg ested possible fatty liver but not confirmed by subsequent CT scan. Plan - Diabetes Mellitus Type 2: Increase Jar diance dose to 25 mg for improved glycemic control. Monitor A1c levels and reinforce compliance to medication schedules. - Chronic Atrial Fibrillation: Continue anticoagulation with Eliquis and regular cardiology follow-ups. - Elevated Bilirubin/Possible Fatty Live r/repeat colon screen: Follow-up with gastroenterology for further evaluation. - Prostatomegaly: Encourage monitoring a nd report any new urinary difficulties promptly. Schedule follow-up PSA in six months. - Hypertension: Ongoing monitoring, cons ider necessary adjustments if blood pressure readings are problematic. Patient was informed and verbally consented to the use of an ambient scribe for clinic note documentation during this visit. Discussion Notes I discussed the importance of tighter glycemic control and the proposed adjustment of the Jardiance dosage, emphasizing its benefits for both cardiac and renal protection. We revisited the management of the patient?s bilirubin levels, noting the importance of completing the pending laboratory tests. I recommended a focus on routine follow-up with gastroenterology for further evaluation related to the possible fatty liver noted previously. We reviewed his prostate health, reiterating the symptoms that would require immediate notification. Additionally, I confirmed the recommendation for scheduling the upcoming colonoscopy. There was a brief discussion around his lifestyle choices, reiterating the importance of physical activity and regular eye examinations. Finally, I reemphasized the benefits of vaccination, with options for the pneumonia vaccine detailed as preventive care. Patient Instructions - Continue current medications and adjus t Jardiance to new dosage. - Complete pending laboratory tests as s oon as possible. - Schedule the gastroenterology follow-u p for evaluation of elevated bilirubin. - Set up and attend a repeat colonoscopy . - Report any new urinary symptoms such a s difficulty starting stream or increased nocturia. - Maintain routine cardiology follow-ups and update me after appointments. - Ensure to complete your scheduled eye examination in three weeks. - Follow-up on vaccination opportunities and consider the pneumonia vaccination. - Maintain an active lifestyle and monit or any changes in health status. [facility] Medical History Chronic a-fib Dyslipidemia Diabetes History of CVA (cerebrovascular accident) Pilonidal cyst Family History Father HTN (hypertension) Mother No problems noted. Social History Housing: House Alcohol intake: current Alcohol intake frequency: holidays/special occasions only Patient Tobacco Use Status: Never used Tobacco e-Cigarette/Vaping Use: Never Used Current occupational status: employed Cognitive needs: No Hearing needs: No Vision needs: No Questionnaire PHQ-9 Over the last 2 weeks, how often have you been bothered by any of the following problems? 1. Little interest or pleasure in doing things: not at all 2. Feeling down, depressed, or hopeless: not at all 3. Trouble falling or staying asleep, or sleeping too much: not at all 4. Feeling tired or having little energy: not at all 5. Poor appetite or overeating: not at all 6. Feeling bad about yourself - or that you are a failure or have let yourself or your family down: not at all 7. Trouble concentrating on things, such as reading the newspaper or watching television: not at all 8. Moving or speaking so slowly that other people could have noticed. Or the opposite - being so fidgety or restless that you have been moving around a lot more than usual: not at all 9. Thoughts that you would be better off or of hurting yourself in some way: not at all Total score: 0 Depression Screening Interpretation: Negative Depression Screening Done: Yes [id number] - PHQ-9 Billing: Yes Source: Developed by Drs. Dennis Ryan, Keri Vasquez, Len Roche and colleagues, with an educational jonnathan from [employer]. Thrive Questionnaire Date Thrive assessed: 03/09/24 I am a: Patient What is your living situation today?: I have a steady place to live Within the past 12 months, did the food you bought not last and you didn't have the money to get more?: Never true Within the past 12 months, did you worry whether your food would run out before you got money to buy more?: Never true Do you have trouble paying for medicines?: No Do you have trouble getting transportation to medical appointments?: No Do you have trouble paying your heating and electricity bill?: No Do you have trouble taking care of your child, family member or friend?: No Do you have trouble with day-to-day activities such as bathing, preparing meals, shopping, managing finances, etc.?: No Are you currently unemployed and looking for a job?: No Are you interested in more education?: No THRIVE Score: 0 AUDIT C Alcohol Use Questionnaire (AUDIT-C) 1. How often do you have a drink containing alcohol?: Monthly or less 2. How many drinks containing alcohol do you have on a typical day when you are drinking?: 1 or 2 3. How often do you have six or more drinks on one occasion?: Never Total Score: 1 SAGRARIO-7 AMB Questionnaire SAGRARIO-7 Date SAGRARIO - 7 assessed: 03/09/24 Feeling nervous, anxious, or on edge: 0 = Not at all Not being able to stop or control worryin = Not at all Worrying too much about different things: 0 = Not at all Trouble relaxin = Not at all Being so restless that it is hard to sit still: 0 = Not at all Becoming easily annoyed or irritable: 0 = Not at all Feeling afraid as if something awful might happen: 0 = Not at all Total SAGRARIO-7 score (0-4 normal; 5-9 mild; 10-14 moderate; 15-21 severe): 0 Source: Developed by Drs. Dennis Ryan, Keri Vasquez, Len Roche and colleagues, with an educational jonnathan from [employer]. SAGRARIO-7 Assessment Billing SAGRARIO-7 Assessment Tool: SAGRARIO-7 Assessment 52517 Physical exam (Primary Care) Vital Signs: Last Vital Signs Pulse 98 03/09/24 07:40 BP 100/70 03/09/24 07:40 Pulse Ox 96 03/09/24 07:40 Oxygen Delivery Method Room Air 03/09/24 07:40 BMI result Body Mass Index 25.8 Tobacco/Smoking Status: Tobacco use Status Tobacco use date assessed 03/09/24 03/09/24 07:45 Patient Tobacco Use Status Never used Tobacco 03/09/24 07:40 e-Cigarette/Vaping Use Never Used 03/09/24 07:40 PHQ-9: PHQ-9 Score PHQ-9: Total score 0 03/09/24 07:45 Depression Screening Interpretation: Negative Thrive Assessment: Date of Thrive Assessment Date Thrive assessed 03/09/24 03/09/24 07:45 Coding Level of Care Code Est Pt Prev Care >65y(62199) Diagnoses Physical exam Z00.00 Diabetes E11.9 Elevated bilirubin R17 Additional Codes PHQ-9 - 10845 - PHQ-9 Billing: Yes ([id number]) SAGRARIO-7 Assessment Billing - SAGRARIO-7 Assessment Tool: SAGRARIO-7 Assessment [id number] ([id number]) Assessment & Plan Assessment & Plan (1) Physical exam: Code(s): Z00.00 - Encounter for general adult medical examination without abnormal findings Category: Medical (2) Diabetes: Code(s): E11.9 - Type 2 diabetes mellitus without complications Category: Medical (3) Elevated bilirubin: Code(s): R17 - Unspecified jaundice Category: Medical Plan . Medications: Changed From empagliflozin (Jardiance) 10 mg PO DAILY 90 tabs 3RF To empagliflozin 25 mg PO DAILY 90 tabs 3RF
== END 2024-03-09 08:06 | disposition home or self-care (01) ==
PROVIDERS: PCP Nurse Practitioner Family; Visit Provider Nurse Practitioner Family
DX: Z00.00 Encounter for general adult medical examination without abnormal findings (principal); E11.9 Type 2 diabetes mellitus without complications; R17 Unspecified jaundice

== ENCOUNTER → 2024-03-09 07:24 | Outpatient (BNVA) | payer OTHER, SELFPAY | PROVIDERS: PCP Nurse Practitioner Family; Visit Provider Nurse Practitioner Family | DX: Z00.00 Encounter for general adult medical examination without abnormal findings (principal); E11.9 Type 2 diabetes mellitus without complications; R17 Unspecified jaundice; I48.20 Chronic atrial fibrillation, unspecified; I10 Essential (primary) hypertension; Z79.01 Long term (current) use of anticoagulants; Z79.84 Long term (current) use of oral hypoglycemic drugs; Z79.899 Other long term (current) drug therapy | CPT/HCPCS: 96127 ==

== ENCOUNTER 2024-11-08 09:59 | Outpatient (AMB) | payer OTHER, SELFPAY ==
--- NOTE | 2024-11-08 10:01 | MHC.PC.OV ---
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 History of Present Illness The patient is a 69-year-old male presenting with elevated bilirubin levels and preventative care needs. The patient has a history of elevated bilirubin, for which he denies any associated abdominal pain. He was previously referred to a dray truck driver but did not follow up due to not receiving a call. A CT scan conducted last year showed no liver abnormalities, but it did reveal a small fat-containing umbilical and left inguinal hernia, as well as a small hiatal hernia. The patient also has an enlarged prostate, for which he is due for a repeat PSA test. He denies any urinary issues or abdominal pain. This is noted to be diabetic as well. I will get an A1c with its current lab orders. I also get a microalbumin. He denies any polyuria, polydipsia or neuropathy. He reports his eye exam is up-to-date. He reports taking all meds as prescribed. Social History Health Maintenance - Colon cancer screening with stool test (Cologuard) planned - Eye exams are up-to-date Review of Systems - Neurological: Denies neuropathy - Gastrointestinal: Denies abdominal pain - Genitourinary: Denies urinary issues -denies any cp, sob, weakness, dizziness, blurred vision, i feel great Physical Exam General: Cooperative, healthy appearing, comfortable, no acute distress and well developed Orientation: Patient oriented x3 Limitations: No limitations Head: Normal to inspection Ears: Hearing grossly normal bilaterally Nose: Normal external nose present Face and sinus: Normal facial exam Eyes: Appearance normal, both eyes and all related structures, reports eye exams up-to-date Neck: Normal visual inspection and Yes full ROM Respiratory: Normal respiratory effort and able to speak in complete sentences. Clear to auscultation bilaterally Cardiovascular: Irregularly irregular rhythm. Normal S1 and S2 GI: Normal to inspection. Soft to palpation and nontender, denies any abdominal pain Skin: No rashes or lesions noted Neuro: Patient oriented x3 Extremities: Normal to inspection, positive sensation with use of monofilament at the feet Results - Imaging: CT scan last year showed no liver abnormalities, small fat-containing umbilical and left inguinal hernia, and small hiatal hernia Plan The plan includes obtaining an A1c with the patient's labs, which should be done fasting in the near future. Further lab work will be conducted to assess the elevated bilirubin levels, and a Cologuard test will be initiated for colon cancer screening. The patient was previously referred to a dray truck driver but did not follow up; this will be revisited. Imaging was considered but deferred due to a recent CT scan showing no liver abnormalities. The patient is due for a repeat PSA test due to an enlarged prostate, although he denies any urinary symptoms. Discussion Notes I discussed with the patient the need for fasting labs to include an A1c and further evaluation of his elevated bilirubin levels. We also talked about the importance of colon cancer screening, and I recommended a Cologuard test. I advised him to follow up with a dray truck driver, as he had not done so previously. We reviewed his previous CT scan results, which showed no liver abnormalities, and discussed the need for a repeat PSA test due to his enlarged prostate. Patient Instructions - Schedule fasting labs including A1c as soon as possible. - Complete the Cologuard test for colon cancer screening. - Follow up with a dray truck driver for elevated bilirubin evaluation. - Schedule a repeat PSA test. [facility] Medical History Chronic a-fib Dyslipidemia Diabetes History of CVA (cerebrovascular accident) Pilonidal cyst Family History Father HTN (hypertension) Mother No problems noted. Social History Housing: House Alcohol intake: current Alcohol intake frequency: holidays/special occasions only Patient Tobacco Use Status: Never used Tobacco e-Cigarette/Vaping Use: Never Used Current occupational status: employed Cognitive needs: No Hearing needs: No Vision needs: No Questionnaire PHQ-9 Over the last 2 weeks, how often have you been bothered by any of the following problems? 1. Little interest or pleasure in doing things: not at all 2. Feeling down, depressed, or hopeless: not at all 3. Trouble falling or staying asleep, or sleeping too much: not at all 4. Feeling tired or having little energy: not at all 5. Poor appetite or overeating: not at all 6. Feeling bad about yourself - or that you are a failure or have let yourself or your family down: not at all 7. Trouble concentrating on things, such as reading the newspaper or watching television: not at all 8. Moving or speaking so slowly that other people could have noticed. Or the opposite - being so fidgety or restless that you have been moving around a lot more than usual: not at all 9. Thoughts that you would be better off or of hurting yourself in some way: not at all Total score: 0 Depression Screening Interpretation: Negative Depression Screening Done: Yes 67726 - PHQ-9 Billing: Yes Source: Developed by Drs. Dennis Ryan, Keri Vasquez, Len Roche and colleagues, with an educational jonnathan from [email or web address]. Thrive Questionnaire Date Thrive assessed: 03/09/24 I am a: Patient What is your living situation today?: I have a steady place to live Within the past 12 months, did the food you bought not last and you didn't have the money to get more?: Often true Within the past 12 months, did you worry whether your food would run out before you got money to buy more?: Never true Do you have trouble paying for medicines?: No Do you have trouble getting transportation to medical appointments?: No Do you have trouble paying your heating and electricity bill?: No Do you have trouble taking care of your child, family member or friend?: No Do you have trouble with day-to-day activities such as bathing, preparing meals, shopping, managing finances, etc.?: No Are you currently unemployed and looking for a job?: No Are you interested in more education?: No Please select the resources that you would like help with: None Currently or been in a relationship where the following occur: I choose not to answer THRIVE Score: 1 AUDIT C Alcohol Use Questionnaire (AUDIT-C) 1. How often do you have a drink containing alcohol?: 2-3 times a week 2. How many drinks containing alcohol do you have on a typical day when you are drinking?: 3 or 4 3. How often do you have six or more drinks on one occasion?: Less than monthly Total Score: 5 SAGRARIO-7 AMB Questionnaire SAGRARIO-7 Date SAGRARIO - 7 assessed: 11/08/24 Feeling nervous, anxious, or on edge: 0 = Not at all Not being able to stop or control worryin = Not at all Worrying too much about different things: 0 = Not at all Trouble relaxin = Not at all Being so restless that it is hard to sit still: 0 = Not at all Becoming easily annoyed or irritable: 0 = Not at all Feeling afraid as if something awful might happen: 0 = Not at all Total SAGRARIO-7 score (0-4 normal; 5-9 mild; 10-14 moderate; 15-21 severe): 0 Source: Developed by Drs. Dennis Ryan, Keri Vasquez, Len Roche and colleagues, with an educational jonnathan from [email or web address]. SAGRARIO-7 Assessment Billing SAGRARIO-7 Assessment Tool: SAGRARIO-7 Assessment 93711 Physical exam (Primary Care) Vital Signs: Last Vital Signs Temp 98.0 F 11/08/24 10:02 Pulse 70 11/08/24 10:02 Resp 16 11/08/24 10:02 BP 110/82 11/08/24 10:02 BMI result Body Mass Index 24.8 Tobacco/Smoking Status: Tobacco use Status Tobacco use date assessed 11/08/24 11/08/24 10:08 Patient Tobacco Use Status Never used Tobacco 11/08/24 10:08 e-Cigarette/Vaping Use Never Used 11/08/24 10:08 PHQ-9: PHQ-9 Score PHQ-9: Total score 0 11/08/24 10:08 Depression Screening Interpretation: Negative Thrive Assessment: Date of Thrive Assessment Date Thrive assessed 03/09/24 11/08/24 10:08 Currently or been in a relationship where the following occur: I choose not to answer Coding Level of Care Code Est Pt Level 4 (99640) Diagnoses Diabetes E11.9 Elevated bilirubin R17 Screening PSA (prostate specific antigen) Z12.5 Additional Codes SAGRARIO-7 Assessment Billing - SAGRARIO-7 Assessment Tool: SAGRARIO-7 Assessment [id number] ([id number]) PHQ-9 - 67889 - PHQ-9 Billing: Yes ([id number]) Assessment & Plan Assessment & Plan (1) Diabetes: Code(s): E11.9 - Type 2 diabetes mellitus without complications Category: Medical (2) Elevated bilirubin: Code(s): R17 - Unspecified jaundice Category: Medical (3) Screening PSA (prostate specific antigen): Code(s): Z12.5 - Encounter for screening for malignant neoplasm of prostate Category: Medical Plan . Orders: Orders Complete Blood Count Auto Diff Today E11.9 - Type 2 diabetes mellitus without complications Comprehensive [place]. Panel Fast Today E11.9 - Type 2 diabetes mellitus without complications UA CC w/rflx Micro + Cult Today E11.9 - Type 2 diabetes mellitus without complications Lipid Panel Today E11.9 - Type 2 diabetes mellitus without complications Microalbumin, Random (w Creat) Today E11.9 - Type 2 diabetes mellitus without complications Reticulocyte Count Today R17 - Unspecified jaundice Lactate Dehydrogenase Today R17 - Unspecified jaundice Haptoglobin Today R17 - Unspecified jaundice Bilirubin Total Today R17 - Unspecified jaundice Prostate Specific Antigen Scr Today Z12.5 - Encounter for screening for malignant neoplasm of prostate TSH reflex Free T4 Today E11.9 - Type 2 diabetes mellitus without complications Bilirubin Direct Today R17 - Unspecified jaundice Hemoglobin A1c Today E11.9 - Type 2 diabetes mellitus without complications Referrals Cologuard Test Z12.11 - Encounter for screening for malignant neoplasm of colon, Z12.12 - Encounter for screening for malignant neoplasm of rectum
[2024-11-08 10:02] VITALS: BP 110/82; PULSE 70; RESP 16; TEMP 36.7; BMI 24.8
== END 2024-11-08 12:32 | disposition home or self-care (01) ==
LOC: HO.HMCC 09:59
PROVIDERS: PCP Nurse Practitioner Family; Visit Provider Nurse Practitioner Family
DX: E11.9 Type 2 diabetes mellitus without complications (principal); R17 Unspecified jaundice; Z12.5 Encounter for screening for malignant neoplasm of prostate

== ENCOUNTER → 2024-11-08 09:59 | Outpatient (BNVA) | payer OTHER, SELFPAY | PROVIDERS: PCP Nurse Practitioner Family; Visit Provider Nurse Practitioner Family | DX: E11.9 Type 2 diabetes mellitus without complications (principal); R17 Unspecified jaundice; Z13.31 Encounter for screening for depression; Z13.39 Encounter for screening examination for other mental health and behavioral disorders | CPT/HCPCS: 96127 ==

== ENCOUNTER 2025-01-31 15:30 | Outpatient (AMB) | payer OTHER, SELFPAY ==
--- NOTE | 2025-01-31 15:35 | A.OFFVIS_ITS ---
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 Rate controlled with metoprolol 25 mg daily. He is active and golfs without any symptoms. Blood pressure well controlled. On chronic Eliquis without any bleeding. [facility] Medical History Chronic a-fib Dyslipidemia Diabetes History of CVA (cerebrovascular accident) Pilonidal cyst Family History Father HTN (hypertension) Mother No problems noted. Social History Housing: House Alcohol intake: current Alcohol intake frequency: holidays/special occasions only Patient Tobacco Use Status: Never used Tobacco e-Cigarette/Vaping Use: Never Used Current occupational status: employed Cognitive needs: No Hearing needs: No Vision needs: No Review of Systems Const Denies chills, Denies fatigue, Denies fever(s), Denies frequent falls, Denies we akness, Denies weight gain and Denies weight loss ENT Denies dizziness Card Denies chest pain, Denies leg edema, Denies lightheadedness, Denies palpit ations, Denies dyspnea and Denies dyspnea on exertion Resp Denies cough, Denies dyspnea and Denies dyspnea on exertion GI Denies hematochezia Musc Denies abnormal gait, Denies muscle weakness, Denies numbness, Denies radiating pain into limb and Denies tingling Neuro Denies abnormal gait, Denies dizziness, Denies frequent falls, Denies numbness, Denies tingling and Denies weakness Endo Denies fatigue and Denies palpitations Physical Exam Vital Signs: Last Vital Signs Pulse 78 01/31/25 15:36 BP 120/70 01/31/25 15:36 BMI result Body Mass Index 25.7 GENERAL APPEARANCE: in no acute distress, pleasant. NECK: no carotid bruit, no jugular venous distention. SKIN: no suspicious lesions, warm and dry. HEART: no murmurs, irregular rate and rhythm. LUNGS: clear to auscultation bilaterally. ABDOMEN: soft, nontender. EXTREMITIES: no edema. PERIPHERAL PULSES: equal. NEUROLOGIC: No gross deficits, AAO X 3 Assessment & Plan Assessment & Plan (1) Chronic a-fib: Code(s): I48.20 - Chronic atrial fibrillation, unspecified Category: Medical Plan [age] year gentleman with chronic/permanent atrial fibrillation. Clinically asymptomatic. Physically active and has no exertional issues. EKG in the office is showing atrial fibrillation 78 beats per minute, QTC 428 milliseconds. He is on metoprolol succinate 25 mg daily. He is on Eliquis for anticoagulation. Continue same medications. He will follow up with us in 1 year. Thank you for allowing me to participate in the care of your patient. Please feel free to contact me if you have any questions. Coding Level of Care Code Est Pt Level 4 (02830) Diagnoses Chronic a-fib I48.20
[2025-01-31 15:36] VITALS: BP 120/70; PULSE 78; BMI 25.7
== END 2025-01-31 16:02 | disposition home or self-care (01) ==
LOC: HO.HCS 15:31
PROVIDERS: PCP Nurse Practitioner Family; Visit Provider Internal Medicine Cardiovascular Disease
DX: I48.20 Chronic atrial fibrillation, unspecified (principal)
CPT/HCPCS: 93010; 99214

== ENCOUNTER → 2025-01-31 15:30 | Outpatient (BNVA) | payer OTHER, SELFPAY | PROVIDERS: PCP Nurse Practitioner Family; Visit Provider Internal Medicine Cardiovascular Disease | DX: I48.20 Chronic atrial fibrillation, unspecified (principal) | CPT/HCPCS: 93005 ==